=== PATIENT | male | born 1930 | race Asian ===

== ENCOUNTER → 2017-07-29 | Outpatient (CLI) | payer MEDICARE ==
[~2017-07-29] VITALS: Ht 157.5 cm; Wt 53.0 kg
[~2017-07-29] MED LIST: ASPI-1182 PO; AUD NEB; DSS100 PO; FLUT1AER IH; FOLI0.8T22 PO; INSLAN SQ; LEVO50 PO; METO25XL PO; PANT40TA25 PO; PHOSLOC PO; SENN-175 PO; ZOLP5 PO
[2017-07-29 10:33] VITALS: BP 123/63
== END | disposition home or self-care (01) ==
LOC: SRCNTR 10:07
PROVIDERS: ATTEND Internal Medicine Clinical Cardiac Electrophysiology
DX: Z45.018 Encounter for adjustment and management of other part of cardiac pacemaker (principal); I10 Essential (primary) hypertension; I25.10 Atherosclerotic heart disease of native coronary artery without angina pectoris; I48.91 Unspecified atrial fibrillation; E03.9 Hypothyroidism, unspecified; E11.9 Type 2 diabetes mellitus without complications; K21.9 Gastro-esophageal reflux disease without esophagitis; Z79.4 Long term (current) use of insulin; Z79.82 Long term (current) use of aspirin
CPT/HCPCS: 93288; G0463

== ENCOUNTER → 2017-08-19 | Outpatient (CLI) | payer MEDICARE ==
[2017-08-19 10:34] VITALS: BP 101/51
== END | disposition home or self-care (01) ==
LOC: SRCNTR 10:20
PROVIDERS: ATTEND Internal Medicine Clinical Cardiac Electrophysiology
DX: I10 Essential (primary) hypertension (principal); I25.10 Atherosclerotic heart disease of native coronary artery without angina pectoris; I48.91 Unspecified atrial fibrillation; E11.9 Type 2 diabetes mellitus without complications; E03.9 Hypothyroidism, unspecified; K21.9 Gastro-esophageal reflux disease without esophagitis; Z79.4 Long term (current) use of insulin; Z79.82 Long term (current) use of aspirin; Z95.0 Presence of cardiac pacemaker
CPT/HCPCS: 93288; G0463

== ENCOUNTER → 2017-09-09 | Outpatient (CLI) | payer MEDICARE ==
[2017-09-09 11:32] VITALS: BP 104/78
== END | disposition home or self-care (01) ==
LOC: SRCNTR 10:40
PROVIDERS: ATTEND Internal Medicine Clinical Cardiac Electrophysiology
DX: I12.0 Hypertensive chronic kidney disease with stage 5 chronic kidney disease or end stage renal disease (principal); N18.6 End stage renal disease; I25.10 Atherosclerotic heart disease of native coronary artery without angina pectoris; I49.5 Sick sinus syndrome; E03.9 Hypothyroidism, unspecified; E11.9 Type 2 diabetes mellitus without complications; K21.9 Gastro-esophageal reflux disease without esophagitis; Z99.2 Dependence on renal dialysis
CPT/HCPCS: G0463

== ENCOUNTER → 2017-09-12 | Outpatient (CLI) | payer MEDICARE ==
[2017-09-12 15:09] VITALS: BP 115/54
== END | disposition home or self-care (01) ==
LOC: SRCNTR 14:00
PROVIDERS: ATTEND Internal Medicine Clinical Cardiac Electrophysiology
DX: Z45.018 Encounter for adjustment and management of other part of cardiac pacemaker (principal)
CPT/HCPCS: G0463

== ENCOUNTER → 2017-09-16 | Outpatient (CLI) | payer MEDICARE ==
[2017-09-16 10:35] VITALS: BP 99/42
== END | disposition home or self-care (01) ==
LOC: SRCNTR 10:17
PROVIDERS: ATTEND Internal Medicine Clinical Cardiac Electrophysiology
DX: Z45.018 Encounter for adjustment and management of other part of cardiac pacemaker (principal)
CPT/HCPCS: G0463

== ENCOUNTER → 2017-09-25 | Outpatient (CLI) | payer MEDICARE ==
[~2017-09-25] VITALS: Ht 167.6 cm; Wt 52.5 kg
[2017-09-25 14:54] VITALS: BP 104/68
== END | disposition home or self-care (01) ==
LOC: SRCNTR 14:18
PROVIDERS: ATTEND Internal Medicine Clinical Cardiac Electrophysiology
DX: Z45.018 Encounter for adjustment and management of other part of cardiac pacemaker (principal)
CPT/HCPCS: 93288; G0463

== ENCOUNTER 2019-05-23 23:49 | Inpatient (IN) | payer MEDICARE, OTHER ==
[~2019-05-23] VITALS: Ht 160 cm; Wt 63.2 kg
[~2019-05-23 23:49] MED LIST changes: -AUD NEB; +CALC-840 PO; +DOCU-342 PO; -DSS100 PO; -FOLI0.8T22 PO; +FOLI1CAP2 PO; +INSU100V SQ; -LEVO50 PO; +LEVO50TA11 PO; -SENN-175 PO; -ZOLP5 PO
[2019-05-24] VITALS (7 sets, daily range): BP systolic 103–132; BP diastolic 27–97
[2019-05-24] MEDS ORDERED: SEVE800T17 PO (00:05)
[2019-05-24] MEDS ORDERED: SULF1TAB89 PO (00:05)
[2019-05-24] MEDS ORDERED: DILT60TA3 PO (00:05)
[2019-05-24] MEDS ORDERED: SULF1TAB41 PO (00:05)
[2019-05-24] MEDS ORDERED: AMOX500C2 PO (00:05)
[2019-05-24] MEDS ORDERED: 0.9% SODIUM CHLORIDE 10 ML SYRINGE IVP PRN (00:30)
[2019-05-24 01:00] LABS: BASOPHILS % (AUTO) 0.8 % (0.0-2.0); EOSINOPHILS % (AUTO) 0.8 % (1.0-6.0); HEMATOCRIT 33.3 % (41-53); HEMOGLOBIN 10.7 g/dL (13.5-17.5); LYMPHOCYTES # (AUTO) 0.4 K/uL (1.0-4.8); LYMPHOCYTES % (AUTO) 4.4 % (22.0-44.0); MEAN CORPUSCULAR HEMOGLOBIN 27.6 pg (26.0-34.0); MEAN CORPUSCULAR HGB CONC 32.1 G/dL (31.0-37.0); MEAN CORPUSCULAR VOLUME 86 fL (80-100); MONOCYTES # (AUTO) 0.7 K/uL (0.1-1.0); MONOCYTES % (AUTO) 6.9 % (2.0-9.0); NEUTROPHILS # (AUTO) 8.8 K/uL (1.8-7.7); RED BLOOD CELL COUNT(AUTO) 3.87 MIL/uL (4.50-5.90); RED CELL DISTRIBUTION WIDTH 21.1 % (11.5-14.5)
[2019-05-24 01:02] LABS: NEUTROPHILS % (AUTO) 87.1 % (40.0-70.0)
[2019-05-24 01:17] LABS: ALBUMIN 3.2 g/dL (3.4-5.0); BILIRUBIN,TOTAL 0.9 mg/dL (0.1-1.0); CALCIUM, TOTAL 9.6 mg/dL (8.8-10.5); CREATININE 5.38 mg/dL (0.60-1.30); TOTAL PROTEIN, SERUM 7.7 g/dL (6.4-8.2)
[2019-05-24 01:21] LABS: POTASSIUM 6.2 mmol/L (3.5-5.1)
[2019-05-24 01:23] LABS: D-DIMER 1.11 mg/L FEU (0.00-0.50)
[2019-05-24 01:24] LABS: INR 1.3 (0.9-1.1); LACTIC ACID 1.3 mmol/L (0.4-2.0); PROTHROMBIN TIME 12.7 SEC (9.4-11.6)
[2019-05-24] MEDS ORDERED: CALCIUM GLUCONATE 100 MG/ML 10 ML IVP ONE (01:30)
[2019-05-24] MEDS ORDERED: DEXTROSE 50%-WATER 25 GM/50 ML SYRINGE IVP ONE (01:30)
[2019-05-24] MEDS ORDERED: INSULIN REGULAR, HUMAN 100 UNITS/ML IVP ONE (01:30)
[2019-05-24 01:36] LABS: PLATELET COUNT (AUTO) 97 K/uL (150-450)
[2019-05-24 01:40] LABS: PLATELET MORPHOLOGY COMMENT LARGE PLTS PRESENT
[2019-05-24] MEDS ORDERED: IOVERSOL 350 MG/ML 100 ML VIAL ONE (01:58)
[2019-05-24] MEDS ORDERED: SODIUM CHLORIDE 0.9% 100 ML ONE (01:58)
[2019-05-24] MEDS ORDERED: PIPERACILLIN SODIUM/TAZOBACTAM 4.5 GM in DEXTROSE 5%-WATER 100 ML IV ONE (03:30)
[2019-05-24] MEDS ORDERED: ASPIRIN 81 MG CHEWABLE TABLET PO ONE (05:00)
[2019-05-24] MEDS ORDERED: METOPROLOL TARTRATE 5 MG/5 ML VIAL IVP ONE (05:00)
[2019-05-24] MEDS ORDERED: ONDANSETRON HCL 4 MG/2 ML VIAL IVP PRN ×2 (05:15→12:15)
[2019-05-24] MEDS ORDERED: ACETAMINOPHEN 325 MG TABLET PO PRN ×2 (05:15→12:15)
[2019-05-24] MEDS ORDERED: PIPERACILLIN SODIUM/TAZOBACTAM 2.25 GM in DEXTROSE 5%-WATER 50 ML IV ONE ×2 (05:45→14:00)
[2019-05-24 06:27] LABS: GLUCOSE,POINT OF CARE 100 MG/DL (70-110)
[2019-05-24] MEDS ORDERED: MORPHINE SULFATE 2 MG/ML SYRINGE IVP PRN (12:15)
[2019-05-24] MEDS ORDERED: BISACODYL 10 MG RECTAL RECTAL SUPPOSITORY PR PRN (12:15)
[2019-05-24] MEDS ORDERED: ZOLPIDEM TARTRATE 5 MG TABLET PO PRN (12:15)
[2019-05-24] MEDS ORDERED: IPRATROPIUM BROMIDE 0.5 MG/2.5 ML NEB SOLUTION NEB PRN (12:15)
[2019-05-24] MEDS ORDERED: MAGNESIUM HYDROXIDE SUSPENSION 30 ML UDCUP PO PRN (12:15)
[2019-05-24] MEDS ORDERED: ALBUTEROL SULFATE 2.5 MG/0.5 ML NEB SOLUTION NEB PRN (12:15)
[2019-05-24] MEDS ORDERED: METO-558 PO (12:20)
[2019-05-24] MEDS ORDERED: B CO1CAP6 PO (12:20)
[2019-05-24] MEDS ORDERED: METOPROLOL SUCCINATE 50 MG ER TABLET PO ONE (13:00)
[2019-05-24] MEDS ORDERED: PIPERACILLIN SODIUM/TAZOBACTAM 0.75 GM in DEXTROSE 5%-WATER 50 ML IV PRN (13:00)
[2019-05-24] MEDS ORDERED: DIGOXIN 250 MCG/ML 2 ML AMP IVP ONE (13:30)
[2019-05-24] MEDS: HYDROCODONE/ACETAMINOPHEN 5-325 MG TABLET PO PRN (14:04)
[2019-05-24] MEDS ORDERED: DEXTROSE 50%-WATER 25 GM/50 ML SYRINGE IVP PRN (16:15)
[2019-05-24] MEDS: HEPARIN SODIUM,PORCINE 5,000 UNITS/ML VIAL SQ SCH (16:23)
[2019-05-24] MEDS: CALCIUM ACETATE 667 MG CAPSULE PO SCH (16:24)
[2019-05-24 18:39] LABS: GLUCOSE,POINT OF CARE 89 MG/DL (70-110)
[2019-05-24] MEDS ORDERED: DOCUSATE SODIUM 100 MG CAPSULE PO SCH (21:00)
[2019-05-24] MEDS: DILTIAZEM HCL 60 MG TABLET PO SCH (21:07)
[2019-05-24] MEDS: CALCIUM CIT/VITAMIN D3 200 MG-250 UNITS TABLET PO SCH (21:07)
[2019-05-24] MEDS: DOCUSATE SODIUM 250 MG CAPSULE PO SCH (21:07)
[2019-05-24] MEDS: SULFAMETHOX/TRIMETH DS 800-160 MG/TABLET PO SCH (21:07)
[2019-05-25 03:58] VITALS: BP 111/57
[2019-05-25] MEDS: LEVOTHYROXINE SODIUM 50 MCG TABLET PO SCH (05:54)
[2019-05-25 06:54] LABS: BASOPHILS % (AUTO) 0.4 % (0.0-2.0); HEMATOCRIT 31.9 % (41-53); HEMOGLOBIN 10.3 g/dL (13.5-17.5); LYMPHOCYTES # (AUTO) 0.3 K/uL (1.0-4.8); LYMPHOCYTES % (AUTO) 3.9 % (22.0-44.0); MEAN CORPUSCULAR HEMOGLOBIN 27.8 pg (26.0-34.0); MEAN CORPUSCULAR HGB CONC 32.3 G/dL (31.0-37.0); MEAN CORPUSCULAR VOLUME 86 fL (80-100); MONOCYTES # (AUTO) 0.8 K/uL (0.1-1.0); MONOCYTES % (AUTO) 9.2 % (2.0-9.0); PLATELET COUNT (AUTO) 85 K/uL (150-450); RED BLOOD CELL COUNT(AUTO) 3.69 MIL/uL (4.50-5.90); RED CELL DISTRIBUTION WIDTH 21.4 % (11.5-14.5)
[2019-05-25 07:01] LABS: CALCIUM, TOTAL 9.6 mg/dL (8.8-10.5); CREATININE 4.06 mg/dL (0.60-1.30); MAGNESIUM 1.9 mg/dL (1.80-2.40); PHOSPHORUS 4.9 mg/dL (2.5-4.9); POTASSIUM 5.2 mmol/L (3.5-5.1)
[2019-05-25 07:24] LABS: NEUTROPHILS % (AUTO) 85.5 % (40.0-70.0)
[2019-05-25 07:25] LABS: PLATELET MORPHOLOGY COMMENT LARGE PLTS PRESENT
[2019-05-25 07:50] VITALS: BP 106/49
[2019-05-25] MEDS: CALCIUM ACETATE 667 MG CAPSULE PO SCH ×3 (08:27→18:21)
[2019-05-25] MEDS: VITAMIN B COMP/VIT C/FOLIC ACID CAPSULE PO SCH (08:27)
[2019-05-25] MEDS: HEPARIN SODIUM,PORCINE 5,000 UNITS/ML VIAL SQ SCH ×3 (08:27→16:48)
[2019-05-25] MEDS: DILTIAZEM HCL 60 MG TABLET PO SCH ×2 (08:28→21:59)
[2019-05-25] MEDS: METOPROLOL SUCCINATE 50 MG ER TABLET PO SCH ×2 (08:28→09:00)
[2019-05-25] MEDS: CALCIUM CIT/VITAMIN D3 200 MG-250 UNITS TABLET PO SCH ×2 (08:28→21:59)
[2019-05-25] MEDS: DOCUSATE SODIUM 250 MG CAPSULE PO SCH ×2 (08:28→21:59)
[2019-05-25] MEDS: ASPIRIN 81 MG EC TABLET PO SCH (08:28)
[2019-05-25] MEDS: SULFAMETHOX/TRIMETH DS 800-160 MG/TABLET PO SCH (08:29)
[2019-05-25] MEDS: FLUTICASONE/VILANTEROL 100-25 MCG/INH INHALER [14] IH SCH (08:29)
[2019-05-25] MEDS: PANTOPRAZOLE SODIUM 40 MG DR TABLET PO SCH (08:31)
[2019-05-25] MEDS ORDERED: INSULIN GLARGINE,HUM.REC.ANLOG 100 UNITS/ML SQ SCH (09:00)
[2019-05-25 10:54] VITALS: BP 98/50
[2019-05-25] MEDS ORDERED: VANCOMYCIN HCL 1 GM/D5% WATER 200 ML IV ONE (12:15)
[2019-05-25] MEDS ORDERED: VANCOMYCIN HCL 1 GM/D5% WATER 200 ML IV PRN (12:15)
[2019-05-25] MEDS: INSULIN LISPRO 100 UNITS/ML SQ PRN ×3 (12:36→22:04)
[2019-05-25] MEDS: EPOETIN ALFA 10,000 UNITS/ML 2 ML VIAL SQ SCH (14:57)
[2019-05-25 16:04] VITALS: BP 101/52
[2019-05-25] MEDS ORDERED: SODIUM CHLORIDE 0.9% 250 ML IV ONE (16:52)
[2019-05-25] MEDS: CefTRIAXone 1 GM/DEXTROSE 50 ML IV SCH (17:22)
[2019-05-25 18:18] LABS: GLUCOSE,POINT OF CARE 106 MG/DL (70-110)
[2019-05-25] MEDS: SEVELAMER CARBONATE 800 MG TABLET PO SCH (18:21)
[2019-05-25 21:39] VITALS: BP 103/48
[2019-05-26] MEDS: HYDROCODONE/ACETAMINOPHEN 5-325 MG TABLET PO PRN ×2 (00:16→11:59)
[2019-05-26 00:23] VITALS: BP 105/53
[2019-05-26 00:38] LABS: GLUCOMETER DEV NAME(LOC) 5N.1; GLUCOSE,POINT OF CARE 65 MG/DL (70-110)
[2019-05-26 00:38] LABS: GLUCOMETER DEV NAME(LOC) 5N.1; GLUCOSE,POINT OF CARE 81 MG/DL (70-110)
[2019-05-26 00:39] LABS: GLUCOMETER DEV NAME(LOC) 5N.1; GLUCOSE,POINT OF CARE 180 MG/DL (70-110)
[2019-05-26 00:39] LABS: GLUCOMETER DEV NAME(LOC) 5N.1; GLUCOSE,POINT OF CARE 172 MG/DL (70-110)
[2019-05-26 00:39] LABS: GLUCOMETER DEV NAME(LOC) 5N.1; GLUCOSE,POINT OF CARE 226 MG/DL (70-110)
[2019-05-26 02:48] LABS: GLUCOMETER DEV NAME(LOC) 5S.2A; GLUCOSE,POINT OF CARE 92 MG/DL (70-110)
[2019-05-26 04:54] VITALS: BP 104/52
[2019-05-26] MEDS: LEVOTHYROXINE SODIUM 50 MCG TABLET PO SCH (06:18)
[2019-05-26] MEDS: INSULIN LISPRO 100 UNITS/ML SQ PRN ×4 (06:24→21:21)
[2019-05-26 07:35] VITALS: BP 109/63
[2019-05-26] MEDS: ASPIRIN 81 MG EC TABLET PO SCH (08:05)
[2019-05-26] MEDS: VITAMIN B COMP/VIT C/FOLIC ACID CAPSULE PO SCH (08:05)
[2019-05-26] MEDS: DILTIAZEM HCL 60 MG TABLET PO SCH ×2 (08:05→21:20)
[2019-05-26] MEDS: CALCIUM CIT/VITAMIN D3 200 MG-250 UNITS TABLET PO SCH ×2 (08:05→21:20)
[2019-05-26] MEDS: CALCIUM ACETATE 667 MG CAPSULE PO SCH ×3 (08:05→17:48)
[2019-05-26] MEDS: DOCUSATE SODIUM 250 MG CAPSULE PO SCH ×2 (08:05→21:20)
[2019-05-26] MEDS: PANTOPRAZOLE SODIUM 40 MG DR TABLET PO SCH (08:05)
[2019-05-26] MEDS: SEVELAMER CARBONATE 800 MG TABLET PO SCH ×3 (08:05→17:48)
[2019-05-26] MEDS: FLUTICASONE/VILANTEROL 100-25 MCG/INH INHALER [14] IH SCH (08:06)
[2019-05-26] MEDS: HEPARIN SODIUM,PORCINE 5,000 UNITS/ML VIAL SQ SCH ×3 (08:06→17:26)
[2019-05-26 11:14] VITALS: BP 108/53
[2019-05-26] MEDS ORDERED: SODIUM CHLORIDE 0.9% 2,000 ML IV ONE (11:48)
[2019-05-26 16:01] LABS: GLUCOMETER DEV NAME(LOC) 5N.1; GLUCOSE,POINT OF CARE 154 MG/DL (70-110)
[2019-05-26 16:01] LABS: GLUCOMETER DEV NAME(LOC) 5N.1; GLUCOSE,POINT OF CARE 158 MG/DL (70-110)
[2019-05-26] MEDS: CefTRIAXone 1 GM/DEXTROSE 50 ML IV SCH (17:28)
[2019-05-26 19:50] LABS: GLUCOMETER DEV NAME(LOC) 5N.1; GLUCOSE,POINT OF CARE 148 MG/DL (70-110)
[2019-05-27 00:31] VITALS: BP 103/50
[2019-05-27 04:29] VITALS: BP 108/65
[2019-05-27] MEDS: LEVOTHYROXINE SODIUM 50 MCG TABLET PO SCH (05:42)
[2019-05-27] MEDS: INSULIN LISPRO 100 UNITS/ML SQ PRN ×2 (05:44→18:01)
[2019-05-27 07:45] VITALS: BP 115/63
[2019-05-27] MEDS: HEPARIN SODIUM,PORCINE 5,000 UNITS/ML VIAL SQ SCH ×3 (08:09→15:53)
[2019-05-27] MEDS: CALCIUM CIT/VITAMIN D3 200 MG-250 UNITS TABLET PO SCH ×2 (08:09→21:41)
[2019-05-27] MEDS: DILTIAZEM HCL 60 MG TABLET PO SCH ×2 (08:09→21:41)
[2019-05-27] MEDS: ASPIRIN 81 MG EC TABLET PO SCH (08:09)
[2019-05-27] MEDS: DOCUSATE SODIUM 250 MG CAPSULE PO SCH ×2 (08:09→21:41)
[2019-05-27] MEDS: PANTOPRAZOLE SODIUM 40 MG DR TABLET PO SCH (08:09)
[2019-05-27] MEDS: SEVELAMER CARBONATE 800 MG TABLET PO SCH ×3 (08:09→17:58)
[2019-05-27] MEDS: VITAMIN B COMP/VIT C/FOLIC ACID CAPSULE PO SCH (08:09)
[2019-05-27] MEDS: CALCIUM ACETATE 667 MG CAPSULE PO SCH ×3 (08:09→17:58)
[2019-05-27] MEDS: EPOETIN ALFA 10,000 UNITS/ML 2 ML VIAL SQ SCH (08:11)
[2019-05-27] MEDS: HYDROCODONE/ACETAMINOPHEN 5-325 MG TABLET PO PRN ×2 (09:12→16:32)
[2019-05-27 11:15] VITALS: BP 112/57
[2019-05-27] MEDS: FLUTICASONE/VILANTEROL 100-25 MCG/INH INHALER [14] IH SCH (11:43)
[2019-05-27] MEDS ORDERED: VANCOMYCIN HCL 1 GM/D5% WATER 200 ML IV ONE (12:00)
[2019-05-27 13:32] LABS: GLUCOMETER DEV NAME(LOC) 5S.2A; GLUCOSE,POINT OF CARE 283 MG/DL (70-110)
[2019-05-27 13:37] LABS: GLUCOMETER DEV NAME(LOC) 5N.1; GLUCOSE,POINT OF CARE 155 MG/DL (70-110)
[2019-05-27 13:52] LABS: GLUCOMETER DEV NAME(LOC) 5S.2A; GLUCOSE,POINT OF CARE 137 MG/DL (70-110)
[2019-05-27 14:47] VITALS: BP 122/67
[2019-05-27] MEDS: CefTRIAXone 1 GM/DEXTROSE 50 ML IV SCH (15:53)
[2019-05-27 20:00] VITALS: BP 117/78
[2019-05-28 00:12] VITALS: BP 112/55
[2019-05-28] MEDS: HEPARIN SODIUM,PORCINE 5,000 UNITS/ML VIAL SQ SCH ×3 (00:29→15:20)
[2019-05-28 04:50] VITALS: BP 130/72
[2019-05-28] MEDS: LEVOTHYROXINE SODIUM 50 MCG TABLET PO SCH (06:07)
[2019-05-28] MEDS: CALCIUM ACETATE 667 MG CAPSULE PO SCH ×2 (08:00→15:13)
[2019-05-28] MEDS: SEVELAMER CARBONATE 800 MG TABLET PO SCH ×2 (08:00→15:12)
[2019-05-28 08:22] VITALS: BP 115/66
[2019-05-28] MEDS ORDERED: LEVO500 PO (10:01)
[2019-05-28 11:34] VITALS: BP 118/93
[2019-05-28 12:22] LABS: GLUCOMETER DEV NAME(LOC) 5S.2A; GLUCOSE,POINT OF CARE 135 MG/DL (70-110)
[2019-05-28 12:22] LABS: GLUCOMETER DEV NAME(LOC) 5S.2A; GLUCOSE,POINT OF CARE 121 MG/DL (70-110)
[2019-05-28 12:22] LABS: GLUCOMETER DEV NAME(LOC) 5S.2A; GLUCOSE,POINT OF CARE 202 MG/DL (70-110)
[2019-05-28] MEDS: INSULIN LISPRO 100 UNITS/ML SQ PRN (12:23)
[2019-05-28] MEDS ORDERED: DOXY100C PO (14:39)
[2019-05-28] MEDS: CALCIUM CIT/VITAMIN D3 200 MG-250 UNITS TABLET PO SCH (15:12)
[2019-05-28] MEDS: DILTIAZEM HCL 60 MG TABLET PO SCH (15:13)
[2019-05-28] MEDS: ASPIRIN 81 MG EC TABLET PO SCH (15:13)
[2019-05-28] MEDS: DOCUSATE SODIUM 250 MG CAPSULE PO SCH (15:14)
[2019-05-28] MEDS: PANTOPRAZOLE SODIUM 40 MG DR TABLET PO SCH (15:14)
[2019-05-28] MEDS: VITAMIN B COMP/VIT C/FOLIC ACID CAPSULE PO SCH (15:15)
[2019-05-28] MEDS: FLUTICASONE/VILANTEROL 100-25 MCG/INH INHALER [14] IH SCH (15:15)
[2019-05-28 15:31] VITALS: BP 115/57
[2019-05-28 21:37] LABS: GLUCOMETER DEV NAME(LOC) 5N.2; GLUCOSE,POINT OF CARE 145 MG/DL (70-110)
== END 2019-05-28 16:25 | disposition home or self-care (01) | DRG 73 ==
LOC: EMS 23:51 → ICU 05-24 05:16 → 5S 05-24 18:10
PROVIDERS: ADMIT Hospitalist; ATTEND Hospitalist
PROC: 5A1D70Z Performance of Urinary Filtration, Intermittent, Less than 6 Hours Per Day (ICD-10-PCS; principal; 2019-05-26)
PROC: 5A1D70Z Performance of Urinary Filtration, Intermittent, Less than 6 Hours Per Day (ICD-10-PCS; 2019-05-28)
DX: G90.8 Other disorders of autonomic nervous system (principal); N18.6 End stage renal disease; E44.0 Moderate protein-calorie malnutrition; I13.2 Hypertensive heart and chronic kidney disease with heart failure and with stage 5 chronic kidney disease, or end stage renal disease; I48.20 Chronic atrial fibrillation, unspecified; I50.40 Unspecified combined systolic (congestive) and diastolic (congestive) heart failure; J44.0 Chronic obstructive pulmonary disease with (acute) lower respiratory infection; E87.5 Hyperkalemia; I48.91 Unspecified atrial fibrillation; F03.90 Unspecified dementia, unspecified severity, without behavioral disturbance, psychotic disturbance, mood disturbance, and anxiety; B95.8 Unspecified staphylococcus as the cause of diseases classified elsewhere; B96.89 Other specified bacterial agents as the cause of diseases classified elsewhere; D63.1 Anemia in chronic kidney disease; E03.9 Hypothyroidism, unspecified; E11.22 Type 2 diabetes mellitus with diabetic chronic kidney disease; E11.51 Type 2 diabetes mellitus with diabetic peripheral angiopathy without gangrene; E78.5 Hyperlipidemia, unspecified; F01.50 Vascular dementia, unspecified severity, without behavioral disturbance, psychotic disturbance, mood disturbance, and anxiety; I07.1 Rheumatic tricuspid insufficiency; I25.10 Atherosclerotic heart disease of native coronary artery without angina pectoris; I25.5 Ischemic cardiomyopathy; I49.5 Sick sinus syndrome; R62.7 Adult failure to thrive; W18.39XA Other fall on same level, initial encounter; Y93.89 Activity, other specified; Y92.89 Other specified places as the place of occurrence of the external cause; Y99.8 Other external cause status; Z79.4 Long term (current) use of insulin; Z79.82 Long term (current) use of aspirin; Z82.49 Family history of ischemic heart disease and other diseases of the circulatory system; Z83.3 Family history of diabetes mellitus; Z87.891 Personal history of nicotine dependence; Z95.0 Presence of cardiac pacemaker; Z95.1 Presence of aortocoronary bypass graft; Z68.24 Body mass index [BMI] 24.0-24.9, adult
CPT/HCPCS: 71260; 71275; 72193; 74160; 74175; 83605; 83735; 84100; 85379; 87040; 87081; 87205; 87340; 93005; 93306; 93880; 93971; 96374; 96375; 97162; 97166; 97530; 97535; 99291; J0610; J0696; J0885; J1160; J1644; J1815; J2543; J3370; J3490; J7030; J7050; J7060